=== PATIENT | female | born 1990 | race Caucasian/White ===

== ENCOUNTER 2018-09-29 10:56 | Day surgery (SDC) | payer MEDICAID ==
[2018-09-29] MEDS ORDERED: ceFAZolin 1 gm in NS 1 GM/100 ML BAG IVPB ONE (15:03)
[2018-09-29] MEDS ORDERED: Bupivacaine 0.25% 20 ML INJ IJ ONE (15:03)
[2018-09-29] MEDS ORDERED: Lidocaine 2% w Epi 1:100,000 Inj IJ ONE (15:05)
[2018-09-29] MEDS ORDERED: Lidocaine/Epinephrine 1% 1:100000 10 ML IJ ONE ×2 (15:08→15:09)
[2018-09-29] MEDS ORDERED: Bupivacaine Liposomal Inj 20 ml INFIL ONE (15:17)
[2018-09-29] MEDS ORDERED: Dexamethasone 4 mg/1 ml ONE (15:20)
[2018-09-29] MEDS ORDERED: Sodium Chloride 0.9% 40 ML IV ONE (15:20)
[2018-09-29] MEDS ORDERED: Midazolam 2 MG/2 ML VIAL ONE (15:23)
[2018-09-29] MEDS ORDERED: Propofol 10 mg/ml Inj (20 ML) ONE (15:23)
[2018-09-29] MEDS ORDERED: DiphenhydrAMINE 50 mg/ml Inj ONE (15:36)
[2018-09-29] MEDS ORDERED: Neostigmine 1:1000 (1 mg/ml) Inj ONE (16:36)
[2018-09-29] MEDS ORDERED: Lactated Ringer's 1,000 ML IV SCH (17:00)
[2018-09-29] MEDS ORDERED: Lactated Ringer's 1,000 ML IV ONE (17:00)
--- NOTE | 2018-09-29 17:05 | PCM.SURG1 ---
Surgeon's Initial Post Op Note - Surgeon's Notes Surgeon: Dr. Worley Nail Tech: Dr. Beyer PGY3; Rachel Bernal Type of Anesthesia: General Endo, Other (TAP block) Pre-Operative Diagnosis: cholelithaisis Operative Findings: see dictation Post-Operative Diagnosis: same Operation Performed: robotic laparoscopic cholecystectomy Specimen/Specimens Removed: gallbladder Estimated Blood Loss: EBL {In ML}: 10 Blood Products Given: N/A Drains Used: No Drains Post-Op Condition: Good Date of Surgery/Procedure: 09/29/18 Time of Surgery/Procedure: 17:05
[2018-09-29] MEDS ORDERED: HYDROmorphone 0.5 mg/0.5 ml ISec IVP STA (18:24)
[2018-09-29 19:02] VITALS: BP 115/62
[2018-09-29 19:37] VITALS: PULSE 62; RESP 11; TEMP 97.9; O2SAT 100
--- NOTE | 2018-09-30 05:04 | OP ---
PROCEDURE DATE: 09/29/2018 PREOPERATIVE DIAGNOSES: 1. Acute on chronic cholecystitis. 2. Cholelithiasis. 3. Abdominal pain. POSTOPERATIVE DIAGNOSES: 1. Acute on chronic cholecystitis. 2. Cholelithiasis. 3. Abdominal pain. PROCEDURE PERFORMED: 1. Robotic cholecystectomy. 2. Laparoscopic bilateral transverse abdominis plane block placement. SURGEON: Aureliano Worley MD PLATE FURNACE OPERATOR: COLE Santiago and Lillian Beyer DO, PGY-3 resident. ANESTHESIA: General endotracheal tube anesthesia. ESTIMATED BLOOD LOSS: Around 10 mL. DRAINS: None. PATHOLOGY: The gallbladder with gallstone was sent for pathology. COMPLICATIONS: None. INTRAOPERATIVE FINDINGS: The patient had changes of chronic cholecystitis and cholelithiasis. DESCRIPTION OF PROCEDURE: On intraoperative steps, this is a 28-year-old female who was diagnosed with symptomatic cholelithiasis. The patient was discharged home last week from the emergency room. The patient was seen in my office with complaint of severe abdominal pain. The patient was consented for robotic cholecystectomy, possible open, brought to the OR and placed supine on operating table. After induction of anesthesia, the abdomen was prepped and draped in usual sterile fashion. A supraumbilical transverse incision was made using open technique. Peritoneal cavity was entered. Pneumo was created. Another 3-8 mm port was placed in the upper abdomen. Robot was brought in. Camera arm as well as arm 1 and arm 2 were docked and gallbladder was retracted cranially. Calot's triangle dissection was done. The cystic duct and cystic artery were identified and clipped at three places and cut in between two clips near the gallbladder. Before clipping the cystic duct, a top-down approach was done, critical view of safety was done, and intraoperative Firefly was used to identify the ductal anatomy. After diving the cystic duct and cystic artery, the gallbladder was dissected free from the gallbladder fossa, taken in EndoCatch bag, taken out through the umbilical port site and sent off the table for pathology. There was proper hemostasis in each and every part of the procedure. Now, the laparoscopic bilateral TAP block was given. The 30:30 mL of Exparel with Decadron was injected into the transverse abdominis muscle plane area and after proper TAP block, all the ports were taken out under vision. Pneumo was deflated. The umbilical port site was closed in two layers, the fascia with 0 Vicryl interrupted sutures, skin with 4-0 Monocryl, and dry sterile dressing was applied. The patient tolerated the procedure well. Count of instrument and gauze was correct. There was no apparent complication. The patient was extubated in OR and sent to the postanesthesia care unit in stable condition. Aureliano Worley MD
== END 2018-09-29 20:10 | disposition home or self-care (01) ==
LOC: C.SDS 10:56
PROVIDERS: ATTEND Surgery Surgical Critical Care
DX: K80.12 Calculus of gallbladder with acute and chronic cholecystitis without obstruction (principal)
CPT/HCPCS: 47562; 64488; 88304; J0690; J2250; J2270; J2405; J2704; J2710; J3010; J7030; J7120; S2900